=== PATIENT | female | born 2000 | race Two or more races ===

== ENCOUNTER 2021-08-09 00:25 | Emergency (ER) | payer OTHER ==
[~2021-08-09] VITALS: Ht 160 cm; Wt 68.0 kg
[2021-08-09] MEDS ORDERED: KETO10TA2 PO (02:25)
== END 2021-08-09 02:49 ==
LOC: ER 00:25
DX: S83.92XA Sprain of unspecified site of left knee, initial encounter (principal); W18.39XA Other fall on same level, initial encounter; Y93.89 Activity, other specified; Y92.832 Beach as the place of occurrence of the external cause; Y99.9 Unspecified external cause status